=== PATIENT | female | born 1995 | race Caucasian/White ===

== ENCOUNTER 2023-12-20 12:02 | Emergency (ER) | payer MEDICAID ==
[~2023-12-20] VITALS: Ht 152.4 cm; Wt 97.5 kg
[2023-12-20] MEDS ORDERED: IBUPROFEN 600 MG TAB PO ONE (13:20)
[2023-12-20] MEDS ORDERED: ACETAMINOPHEN 325 MG TAB PO ONE (13:20)
[2023-12-20] MEDS ORDERED: NAPROSYN500 MG PO (13:46)
== END 2023-12-20 13:50 | disposition home or self-care (01) ==
LOC: ED 12:02
DX: M54.50 Low back pain, unspecified (principal); Z91.040 Latex allergy status; Z88.0 Allergy status to penicillin; Z88.1 Allergy status to other antibiotic agents

== ENCOUNTER 2024-10-27 12:10 | Emergency (ER) | payer OTHER ==
[~2024-10-27] VITALS: Wt 99.8 kg
[~2024-10-27 12:10] MED LIST: NAPROSYN500 MG PO
== END 2024-10-27 16:11 | disposition home or self-care (01) ==
LOC: ED 12:10
DX: S70.11XA Contusion of right thigh, initial encounter (principal); Z91.040 Latex allergy status; Z88.0 Allergy status to penicillin; Z88.1 Allergy status to other antibiotic agents; Z79.899 Other long term (current) drug therapy; W55.12XA Struck by horse, initial encounter; Y93.89 Activity, other specified; Y92.89 Other specified places as the place of occurrence of the external cause; Y99.8 Other external cause status